=== PATIENT | male | born 1940 | race Caucasian/White ===

== ENCOUNTER 2022-09-08 09:48 | Day surgery (SDC) | payer MEDICARE, OTHER ==
[~2022-09-08] VITALS: Ht 188 cm; Wt 99.0 kg
[~2022-09-08 09:48] MED LIST: AMLODIPINE5 MG PO; FLEXERIL 1010 MG/TAB PO; HYTRIN 2MG CAPSU2 MG PO; LEVOTHYROXIN0.075 MG PO; LIVALO2 MG PO; NORVASC 5MG5 MG/TAB PO; OMEPRAZOLE20 MG PO; PLAVIX 75MG TAB75 MG PO; TERAZOSIN1 MG PO; ZETIA 10MG TAB10 MG PO
--- NOTE | 2022-09-08 10:39 | NUR ---
1039 PATIENT ARRIVES TO UNIT. PT AMBULATES WITH STEADY GAIT. PT IS HERE WITH HIM. OBTAINED PT WEIGHT AND HEIGHT. BROUGHT PT TO ROOM 5. THIS NURSE REVIEWED CONSENT FORMS WITH PT AND SIGNED FORMS. OBTAINED HEALTH HISTORY AND VITAL SIGNS. PT CHANGED HIMSELF IN TO CLEAN GOWN. THIS NURSE STARTED 20 G IV IN RIGHT HAND ON FIRST ATTEMPT. SKIN IS CDI. PT BED IS LOCKED AND TO LOWERED WITH SIDE RAILS UP. CALL LIGHT WITHIN REACH.
[2022-09-08 11:17] VITALS: BP 126/64; PULSE 56; TEMP 97.4
[2022-09-08] MEDS ORDERED: LIVALO2 MG PO (11:49)
[2022-09-08] MEDS ORDERED: MULTI VITAMINS1 TAB PO (11:50)
[2022-09-08] MEDS ORDERED: CLARITIN 1010 MG/TAB PO (11:51)
[2022-09-08] MEDS ORDERED: NORCO 325 MG-51 TAB PO (14:29)
[2022-09-08 15:05] VITALS: BP 101/90; PULSE 69; TEMP 97.2
--- NOTE | 2022-09-08 15:05 | NUR ---
1505 PATIENT RETURNS TO ROOM 5 VIA CART. PATIENT IS ALERT AND ORIENTED. RESPIRATIONS EVEN AND UNLABORED. VITAL SIGNS OBTAINED. PATIENT HAD IV PAIN MEDS IN PACU AND STATES THAT HIS PAIN IS A 2/10, TOLERABLE. 3 LAP SITES TO ABDOMEN HELD TOGETHER WITH SKIN GLUE. CDI. PT AND DAUGHTER IN ROOM. PT REQUESTED A CHOCOLATE PUDDING AND WATER. NO DIFFICULTIES SWALLOWING. 1530 PT STATES THAT HIS PAIN HAS INCREASED TO A 4/10. THIS NURSE GAVE PRN PO PAIN MEDICATION PER PT REQUEST. 1540 THIS NURSE REVIEWED DISCHARGE INSTRUCTIONS WITH PATIENT AND PATIENT FAMILY. BOTH VERBALIZED UNDERSTANDING. 1550 DISCONTINUED IV FROM RIGHT HAND WITH NO DIFFICULTIES. IV CATHETER INTACT. 1620 PATIENT DISCHARGES FROM UNIT VIA WHEELCHAIR IN STABLE CONDITION.
[2022-09-08 15:20] VITALS: BP 122/65; PULSE 64
[2022-09-08 15:35] VITALS: BP 126/61; PULSE 66
[2022-09-08 15:50] VITALS: BP 133/66; PULSE 63
== END 2022-09-08 16:20 | disposition home or self-care (01) ==
LOC: SDCO 09:48
DX: K40.21 Bilateral inguinal hernia, without obstruction or gangrene, recurrent (principal); Z79.01 Long term (current) use of anticoagulants; Z86.73 Personal history of transient ischemic attack (TIA), and cerebral infarction without residual deficits
CPT/HCPCS: C1781; J0330; J1100; J2405; J2704; J3010; J7120